=== PATIENT | male | born 1955 | race African-American/Black ===

== ENCOUNTER 2016-10-19 09:51 | Emergency (ER) | payer MEDICARE ==
[2016-10-19] MEDS ORDERED: Oxymetazoline HCl 0.05% ( 15 ML ) ONE (10:10)
--- NOTE | 2016-10-19 10:35 | RAD ---
2 VIEWS CHEST: Date: 10/19/16 PROVIDED CLINICAL HISTORY: Shortness of breath. FINDINGS: Cardiac and mediastinal silhouette is within normal limits. No focal consolidation or pneumothorax a pparent. Poor definition to the posterior costophrenic angles could reflect pleural effusion/effusio ns. IMPRESSION: Poorly delineated appearance to the posterior costophrenic angles on the lateral view could reflect small pleural effusions. Otherwise unremarkable 2 view chest. POS: [id number]
== END 2016-10-19 11:02 | disposition home or self-care (01) ==
LOC: NAV ERS 09:51
DX: J20.9 Acute bronchitis, unspecified (principal); I10 Essential (primary) hypertension; F31.9 Bipolar disorder, unspecified; F17.210 Nicotine dependence, cigarettes, uncomplicated
CPT/HCPCS: 71020